=== PATIENT | male | born 1990 | race Caucasian/White ===

== ENCOUNTER 2022-07-21 12:30 | Emergency (ER) | payer SELFPAY ==
--- NOTE | ~2022-07-21 | XR_ITS ---
EXAMINATION: XR chest 2V 07/21/2022 13:17 INDICATION: Shortness of breath PROCEDURE: 2 view chest COMPARISON: 05/08/2012 FINDINGS: The lungs are clear. The cardiomediastinal silhouette is within normal limits. There are no pleural effusions. There is no pneumothorax suspected. IMPRESSION: 1: NO ACUTE CARDIOPULMONARY DISEASE. Reviewed, dictated and finalized at location B.
--- NOTE | 2022-07-21 12:40 | ECG_ITS ---
Measurements Intervals [place] Rate: 72 P: 31 [place]: 151 QRS: 3 QRSD: 97 T: 9 QT: 376 QTc: 412 Interpretive Statements SINUS RHYTHM MINIMAL VOLTAGE CRITERIA FOR LVH, CONSIDER NORMAL VARIANT BORDERLINE ECG COMPARED TO ECG 07/21/2022 12:49:28 NO SIGNIFICANT CHANGES Electronically Signed On 07-21-2022 16:23:38 CDT by Edwin Barnes M.D.
[2022-07-21 12:51] VITALS: BP 140/94; PULSE 80; RESP 16; TEMP 36.6; O2SAT 100
[2022-07-21 12:59] VITALS: PULSE 88
[2022-07-21 13:08] LABS: Basophils Absolute Auto 0.1 K/mm3 (0.0-0.1); Basophils Percent Auto 0.9 % (0.2-1.2); Eosinophils Absolute Auto 0.2 K/mm3 (0-0.3); Eosinophils Percent Auto 2.6 % (0-4.4); Hematocrit 46.3 % (42.0-52.0); Hemoglobin 16.7 g/dL (14.0-18.0); Immature Granulocyte Absolute 0.02 K/mm3 (0.00-0.031); Immature Granulocyte Percent A 0.3 % (0-0.5); Lymphocytes Percent Auto 36.3 % (18.3-44.2); Mean Corpuscular HGB Conc 36.1 g/dl (32-36); Mean Corpuscular Hemoglobin 30.5 pg (26-34); Mean Corpuscular Volume 84.6 fl (80-100); Mean Platelet Volume 9.8 fl (7.4-10.4); Monocytes Absolute Auto 0.6 K/mm3 (0.1-0.6); Monocytes Percent Auto 8.1 % (2.6-8.5); Neutrophils Absolute Auto 3.9 K/mm3 (1.3-6.7); Neutrophils Percent Auto 51.8 % (45.5-73.1); Platelet Count Result 258 k/mm3 (150-375); Red Blood Count 5.47 M/mm3 (4.6-6.20); Red Cell Distribution Width 12.5 % (11.5-14.5); White Blood Count 7.4 K/mm3 (4.5-10.0)
--- NOTE | 2022-07-21 13:17 | ED.SOB ---
HPI - SOB/Dyspnea General Chief Complaint: Shortness of Breath/Dyspnea <ELISA Dacosta Last Filed: 07/21/22 17:40> Stated Complaint: sob <ELISA Dacosta Last Filed: 07/21/22 17:40> Time Seen by Provider: 07/21/22 12:57 <ELISA Dacosta Last Filed: 07/21/22 17:40> History of Present Illness HPI Narrative: Patient is a 32-year-old healthy male here for evaluation of shortness of breath over the past day and a half. Patient states that sensation of shortness of breath came on while he was at rest and is worse when he is up exerting himself. He denies history of previous similar sensation. Today he did a tightness in his chest, lasting seconds at a time, sharp in nature which prompted his ED evaluation. No leg swelling, fevers, chills, cough, congestion, rhinorrhea, sick contacts. <ELISA Dacosta Last Filed: 07/21/22 17:40> Related Data Allergies/Adverse Reactions: Allergies Allergy/AdvReac Type Severity Reaction Status Date / Time No Known Drug Allergies Allergy Verified 05/08/12 12:23 <Alannah Anderson PA-C - Last Filed: 07/21/22 17:40> Review of Systems Review of Systems: Gen: Denies fevers or chills Eyes: Denies eye pain or visual change ENT: Denies congestion Respiratory: Reports shortness of breath. CV: Reports chest pain. GI: Denies abdominal pain nausea, emesis or diarrhea denies burning, urgency, frequency or hematuria Musculoskeletal: Denies back pain or muscle pain Neuro: Denies numbness, tingling, weakness or focal weakness Skin: Denies rash Except as documented, all other systems reviewed and negative <ELISA Dacosta Last Filed: 07/21/22 17:40> Exam Narrative: APPEARANCE: Well appearing, no pain in distress, well-nourished. Head: Normocephalic and atraumatic. EYES: PERRLA/EOMI, conjunctivae clear NOSE: No nasal drainage EARS: External ear normal in appearance THROAT: Oropharynx is clear. Mucous membranes are moist. NECK: Supple. No adenopathy, no masses. RESPIRATORY: Airway patent, respirations nonlabored. Clear to auscultation bilaterally, no rales, rhonchi, wheezing. CARDIOVASCULAR: Regular rate and rhythm without murmurs, rubs, or gallops. ABDOMINAL: Normoactive bowel sounds. Soft, nontender, nondistended. No rebound tenderness or guarding. MUSCULOSKELETAL: Extremities are warm and well-perfused. Moves all extremities well. No edema. NEURO: Normal speech. No focal neurologic deficits. SKIN: Skin is warm and dry. No rashes. PSYCHIATRIC: Normal affect/mood.. <Alannah Anderson PA-C - Last Filed: 07/21/22 17:40> Course BACKGROUND INVESTIGATOR/PA Physician Supervision For this patient encounter, I reviewed the BACKGROUND INVESTIGATOR or PA documentation, treatment plan, and medical decision making <Kevyn Awad MD - Last Filed: 07/21/22 21:01> Vital Signs Vital signs: Vital Signs Temperature 97.8 F 07/21/22 12:51 Pulse Rate 80 07/21/22 12:51 Respiratory Rate 16 07/21/22 12:51 Blood Pressure 140/94 H 07/21/22 12:51 Pulse Oximetry 100 07/21/22 12:51 Oxygen Delivery Room Air 07/21/22 12:51 Temperature 97.8 F 07/21/22 12:51 Pulse Rate 70 07/21/22 14:52 Respiratory Rate 19 07/21/22 14:52 Blood Pressure 132/74 07/21/22 14:52 Pulse Oximetry 99 07/21/22 14:52 Oxygen Delivery Room Air 07/21/22 12:51 <Alannah Anderson PA-C - Last Filed: 07/21/22 17:40> Vital Signs Temperature 97.8 F 07/21/22 12:51 Pulse Rate 80 07/21/22 12:51 Respiratory Rate 16 07/21/22 12:51 Blood Pressure 140/94 H 07/21/22 12:51 Pulse Oximetry 100 07/21/22 12:51 Oxygen Delivery Room Air 07/21/22 12:51 Temperature 97.8 F 07/21/22 12:51 Pulse Rate 70 07/21/22 14:52 Respiratory Rate 19 07/21/22 14:52 Blood Pressure 132/74 07/21/22 14:52 Pulse Oximetry 99 07/21/22 14:52 Oxygen Delivery Room Air 07/21/22 12:51 <Kevyn Awad MD - Last File
[2022-07-21 13:21] LABS: Alanine Aminotransferase 77 U/L (6-50); Albumin Level 5.2 g/dL (3.5-5.1); Alkaline Phosphatase 74 U/L (38-126); Anion Gap 16 mmol/L (8-16); Aspartate Amino Transferase 49 U/L (17-59); Bilirubin,Total 1.4 mg/dL (0.2-1.3); Blood Urea Nitrogen 16 mg/dL (9-20); Calcium 9.4 mg/dL (8.4-10.2); Carbon Dioxide 24 mmol/L (22-30); Chloride 99 mmol/L (98-107); Estimated CRCL calculation 149 ml/min; Estimated Glomerular Filt Rate > 60; Glucose 99 mg/dL (65-110); Potassium 3.9 mmol/L (3.4-5.0); Sodium 139 mmol/L (137-145)
[2022-07-21 13:50] LABS: Troponin I < 0.012 ng/mL (0.000-0.034)
[2022-07-21 14:01] LABS: D Dimer < 0.27 ug/mL (<0.48)
[2022-07-21 14:07] LABS: Influenza A QL RT-PCR Negative (Negative); Influenza B QL RT-PCR Negative (Negative); SARS-CoV-2 RNA PCR Negative
--- NOTE | 2022-07-21 14:08 | ECG_ITS ---
Measurements Intervals [place] Rate: 75 P: 27 MS: 157 QRS: 18 QRSD: 100 T: 30 QT: 357 QTc: 399 Interpretive Statements SINUS RHYTHM BASELINE ARTIFACT BORDERLINE ECG NO PREVIOUS ECG AVAILABLE FOR COMPARISON Electronically Signed On 07-21-2022 16:22:36 CDT by Edwin Barnes M.D.
[2022-07-21 14:52] VITALS: BP 132/74; PULSE 70; RESP 19; O2SAT 99
== END 2022-07-21 14:53 | disposition home or self-care (01) ==
PROVIDERS: Physician Assistant; Emergency Provider Emergency Medicine
DX: R07.89 Other chest pain (principal); Z20.822 Contact with and (suspected) exposure to COVID-19
CPT/HCPCS: 36415; 71046; 80053; 84484; 85025; 85380; 87502; 93005; 99284; U0003; U0005

== ENCOUNTER 2024-02-24 10:38 | Emergency (ER) | payer OTHER, SELFPAY ==
--- NOTE | ~2024-02-24 | XR_ITS ---
EXAMINATION: XR hand RT min 3V DATE: 02/24/2024 11:04 INDICATION: Right hand pain. Injury. TECHNIQUE: 3 views of right hand were obtained. COMPARISON: None. FINDINGS: There is a transverse fracture of neck of fourth metacarpal. The distal fracture fragment d emonstrates 1 mm palmar displacement and 11 degrees palmar angulation. Joint spaces are normal. IMPRESSION: 1. Transverse fracture of neck of fourth metacarpal. Reviewed, dictated and finalized at location A.
--- NOTE | 2024-02-24 10:40 | ED.UPPEXIN ---
HPI - Extremity Injury (Upper) General Chief Complaint: Extremity Injury, Upper Stated Complaint: right hand injury Time Seen by Provider: 02/24/24 10:39 Source: patient Mode of arrival: ambulatory Limitations: no limitations History of Present Illness HPI narrative: Patient is a 34-year-old male that presents with right hand injury after hitting it very hard on beam while doing a home project last night. Patient used ice and foreign mg of ibuprofen. Patient reports swelling and bruising to dorsal hand. Patient reports pain with moving 4th and 5th digit. Denies any numbness, tingling. Related Data Home Medications Medication Instructions Recorded Confirmed buspirone 5 mg tablet 5 mg PO DAILY 02/24/24 02/24/24 omeprazole 20 mg capsule,delayed 20 mg PO DAILY 02/24/24 02/24/24 release Allergies Allergy/AdvReac Type Severity Reaction Status Date / Time No Known Drug Allergies Allergy Other Verified 02/24/24 10:44 Review of Systems Review of Systems: All systems reviewed & are unremarkable except as noted in HPI and below Constitutional: Constitutional: Denies body ache(s), Denies chills, Denies fatigue, Denies fever(s), Denies headache(s), Denies malaise and Denies weakness Eyes: Eyes: Denies blurry vision, Denies irritation and Denies loss of vision ENT: Denies otalgia, Denies headache(s), Denies nasal discharge, Denies sinus pain and Denies sore throat Cardiovascular: Cardiovascular: Denies chest pain, Denies irregular heart rhythm and Denies dyspnea Respiratory: Respiratory: Denies dyspnea Gastrointestinal: Gastrointestinal: Denies abdominal pain, Denies melena, Denies hematochezia, Denies diarrhea, Denies nausea and Denies vomiting Musculoskeletal: Musculoskeletal: Denies back pain, Denies myalgias, Reports arthralgias and Reports joint swelling Integumentary/Breasts: Skin/Breast: Denies pruritus and Denies rash Neurologic: Denies headache(s), Denies loss of vision and Denies weakness Psychiatric: Psychiatric: Reports no additional psychiatric complaints Endocrine: Endocrine: Denies fatigue PMFSH Comments At time of signature, agree with nursing past medical, surgical, social and family history. There is no relevant family history pertinent to the presenting complaint. Exam Const: General: cooperative, healthy appearing, comfortable, no acute distress and well nourished Nutritional Appearance: well nourished Orientation/consciousness: patient oriented x3 Limitations: no limitations HENMT: Head: normal to inspection, normocephalic and atraumatic Ears: hearing grossly normal bilaterally and external ears normal Face/Nose/Sinus: Normal external nose present, normal facial exam and face symmetric Face and sinus: normal facial exam and face symmetric Mouth: Yes lip normal Eyes: General: appearance normal, both eyes and all related structures Alignment and Position: alignment normal and position normal Periorbital: periorbital findings normal Eyelids: eyelids normal Pupils: Equal, round and reactive pupils present EOM: EOMs intact bilaterally Neck: Neck: normal visual inspection, full ROM and supple Chest: Chest palpation & inspection: normal inspection of the chest Resp: Effort & Inspection: normal respiratory effort and able to speak in complete sentences Auscultation: clear to auscultation bilaterally Cardio: Rate: regular rate Rhythm: regular rhythm Heart sounds: S1 normal heart sound present and S2 normal heart sound present GI: Inspection: normal to inspection Skin: General skin exam: normal color and no rashes or lesions noted Neuro: General: patient oriented x3 and moves all extremities Cranial nerves: Yes Equal, round and reactive pupils present Speech: normal speech Gait exam (Neuro): Normal gait present Extrem: General: normal to inspection, full ROM and no edema Left upper extremity: wrist normal to inspection, normal ROM, normal vascular exam and radial pulse present; no t
[2024-02-24 10:52] VITALS: BP 125/87; PULSE 90; RESP 16; TEMP 37.5; O2SAT 99
== END 2024-02-24 11:45 | disposition home or self-care (01) ==
PROVIDERS: Emergency Provider Nurse Practitioner Family
DX: S62.334A Displaced fracture of neck of fourth metacarpal bone, right hand, initial encounter for closed fracture (principal); W22.8XXA Striking against or struck by other objects, initial encounter; K21.9 Gastro-esophageal reflux disease without esophagitis
CPT/HCPCS: 29125; 73130; 99214; A4565; G0463

== ENCOUNTER 2024-03-26 16:43 | Outpatient (CLI) | payer OTHER, SELFPAY ==
--- NOTE | ~2024-03-26 | XR_ITS ---
EXAM: XR hand RT min 3V DATE: 03/26/2024 17:01 HISTORY: take out of splint . COMPARISON: 02/24/2024. FINDINGS: Normal mineralization. Redemonstration of the distal right fourth metacarpal fracture with early callus formation, alignment unchanged. No new acute fracture or dislocation. No lytic or blast ic lesion. Joint spaces are maintained. No erosion or periosteal change. Soft tissues within normal l imits. IMPRESSION: Early healing changes in the distal right fourth metacarpal fracture. Reviewed, dictated and finalized at location K. IMPRESSION: Early healing changes in the distal right fourth metacarpal fractur e.
== END 2024-03-26 16:44 | disposition home or self-care (01) ==
PROVIDERS: Visit Provider Plastic Surgery
DX: S62.364D Nondisplaced fracture of neck of fourth metacarpal bone, right hand, subsequent encounter for fracture with routine healing (principal); X58.XXXD Exposure to other specified factors, subsequent encounter
CPT/HCPCS: 73130